=== PATIENT | male | born 1995 | race Caucasian/White ===

== ENCOUNTER 2019-06-03 09:56 | Emergency (ER) | payer BC, OTHER ==
[~2019-06-03] VITALS: Ht 180.3 cm; Wt 117.4 kg
[~2019-06-03 09:56] MED LIST: ACET500C5 PO; IBUP800T48 PO
[2019-06-03 10:06] VITALS: BP 145/73; PULSE 82; RESP 18; Ht 180.3 cm; Wt 117.4 kg
[2019-06-03] MEDS ORDERED: KETOROLAC 30 MG INJ IV STA (10:20)
[2019-06-03] MEDS ORDERED: SOD CHLORIDE 0.9% 1,000 ML IV STA (10:20)
[2019-06-03] MEDS ORDERED: ONDANSETRON 4 MG INJ IV STA (10:20)
--- NOTE | 2019-06-03 12:58 | ERD ---
ER Documentation Chief Complaint Chief Complaint C/O H/A, BODY ACHE AND SORE THROAT FOR 3 DAYS; NO DROOLING, NO STRIDORS HPI 24-year-old male presenting with body aches and sore throat. Patient has a mild headache and feels diffusely achy. He is on no fever and has a mild dry cough. No runny nose. He has not taken medications for symptoms. Denies medical problems. NKDA. Surgical history is appendectomy. Social history denies ROS All systems reviewed and are negative except as per history of present illness. Medications Home Meds Active Scripts Acetaminophen* (Tylophen*) 500 Mg Capsule, 2 CAP PO Q8H PRN for PAIN AND OR ELEVATED TEMP, #20 CAP Prov:TODD GUERRERO PA-C 06/03/19 Ibuprofen* (Motrin*) 800 Mg Tab, 800 MG PO Q6, #30 TAB Prov:TODD GUERRERO PA-C 06/03/19 Reported Medications [None] No Conflict Check 03/21/11 Allergies Allergies: Coded Allergies: No Known Drug Allergy (Verified Allergy, Mild, 03/21/11) PMhx/Soc Medical and Surgical Hx: pt denies Medical Hx History of Surgery: Yes (APPENDECTOMY 2000) Anesthesia Reaction: No Hx Neurological Disorder: No Hx Respiratory Disorders: No Hx Cardiac Disorders: No Hx Psychiatric Problems: No Hx Miscellaneous Medical Probl: No Hx Alcohol Use: No Hx Substance Use: No Hx Tobacco Use: No Smoking Status: Never smoker FmHx Family History: No diabetes, No coronary disease, No other Physical Exam Vitals Vital Signs Date Temp Pulse Resp B/P (MAP) Pulse Ox O2 O2 Flow FiO2 Time Delivery Rate 06/03/19 98.9 82 18 145/73 99 10:06 (97) Physical Exam GENERAL: The patient is well-appearing, well-nourished, in no acute distress HEENT: Atraumatic. Conjunctivae are pink. Pupils equal, round, and reactive to light. There is no scleral icterus. Tympanic membranes clear bilaterally. Oropharynx clear. NECK: C-spine is soft and supple. There is no meningismus. There is no cervical lymphadenopathy. CHEST: Clear to auscultation bilaterally. There are no rales, wheezes or rhonchi. HEART: Regular rate and rhythm. No murmurs, clicks, rubs or gallops. ABDOMEN:Soft, nontender and nondistended. Good bowel sounds. No rebound or guarding. No gross peritonitis. No gross organomegaly or masses. BACK: No midline or flank tenderness. Results 24 hrs Laboratory Tests Test 06/03/19 10:31 Urine Color YELLOW Urine Clarity CLEAR Urine pH 6.0 Urine Specific Irving 1.018 Urine Ketones NEGATIVE mg/dL Urine Nitrite NEGATIVE mg/dL Urine Bilirubin NEGATIVE mg/dL Urine Urobilinogen NEGATIVE mg/dL Urine Leukocyte Esterase NEGATIVE Michael/ul Urine Microscopic RBC 0 /HPF Urine Microscopic WBC 1 /HPF Urine Hemoglobin 1+ mg/dL Urine Glucose NEGATIVE mg/dL Urine Total Protein NEGATIVE mg/dl Current Medications Medications Dose Sig/Arsalan Start Time Status Last (Trade) Ordered Route PRN Stop Time Admin Dose Reason Admin Sodium 1,000 ml @ Q1H STAT 06/03/19 DC 06/03/19 Chloride 1,000 mls/hr IV 10:20 06/03/19 10:31 11:19 Ondansetron 4 mg ONCE STAT 06/03/19 DC 06/03/19 HCl (Zofran IV 10:20 06/03/19 10:31 Inj) 10:22 Ketorolac 30 mg ONCE STAT 06/03/19 DC 06/03/19 Tromethamine IV 10:20 06/03/19 10:32 (Toradol) 10:22 Procedures/MDM ER course: 1 L normal saline given in ED. Toradol and Zofran given in ED. Upon reevaluation patient stated he felt about the same but wanted to go home as he feels this is associated with a viral syndrome. Urinalysis negative. MDM: 24-year-old male presenting with viral syndrome. I have low suspicion for meningitis or sepsis. Patient's vitals are stable and exam is non-concerning. I have low suspicion for acute abdominal emergency. I have low suspicion for bacterial HEENT infection. I have low suspicion for pneumonia. Patient is discharged with strict ER precautions and told to follow-up with primary care within 1 to 2 days for close evaluation. All questions answered at discharge Departure Diagnosis: Primary Impression: Viral syndrome Condition: Stable Patient Instructions: Viral Syndrome (Adult) Referrals: [facility] YOU HAVE RECEIVED A MEDICAL SCREENING EXAM AND THE RESULTS INDICATE THAT YOU DO NOT HAVE A CONDITION THAT REQUIRES URGENT TREATMENT IN THE EMERGENCY DEPARTMENT. FURTHER EVALUATION AND TREATMENT OF YOUR CONDITION CAN WAIT UNTIL YOU ARE SEEN IN YOUR DOCTORS OFFICE WITHIN THE NEXT 1-2 DAYS. IT IS YOUR RESPONSIBILITY TO MAKE AN APPOINTMENT FOR FOLOW-UP CARE. IF YOU HAVE A PRIMARY DOCTOR --you should call your primary doctor and schedule an appointment IF YOU DO NOT HAVE A PRIMARY DOCTOR YOU CAN CALL OUR PHYSICIAN REFERRAL HOTLINE AT IF YOU CAN NOT AFFORD TO SEE A PHYSICIAN YOU CAN CHOSE FROM THE FOLLOWING [facility] [address] [facility] [address] [facility] [address] [facility] [address] [facility] [address] [facility]. [address] Additional Instructions: FOLLOW UP WITH YOUR PRIMARY CARE PHYSICIAN TOMORROW.Return to this facility if you are not improving as expected. TODD GUERRERO PA-C Jun 03, 2019 12:58
== END 2019-06-03 11:32 | disposition home or self-care (01) ==
LOC: FTE 09:56
DX: B34.9 Viral infection, unspecified (principal)
CPT/HCPCS: 81001; 96361; 96374; 96375; 99284; J1885; J2405; J7030